=== PATIENT | female | born 1955 ===

== ENCOUNTER 2016-08-11 16:17 | Emergency (ER) | payer SELFPAY ==
[~2016-08-11] VITALS: Wt 72.5 kg
[2016-08-11] MEDS ORDERED: ASPIRIN 325 MG TAB PO STA (21:56)
== END 2016-08-11 22:12 | disposition left against medical advice (07) ==
LOC: E/R 16:17
DX: Z53.21 Procedure and treatment not carried out due to patient leaving prior to being seen by health care provider (principal)